=== PATIENT | female | born 1935 | race Caucasian/White ===

== ENCOUNTER 2021-11-27 16:36 | Emergency (ER) | payer MEDICARE, OTHER ==
[~2021-11-27] VITALS: Ht 162.6 cm; Wt 68.0 kg
[2021-11-27] MEDS ORDERED: COLESTID5 GM PO (16:41)
[2021-11-27] MEDS ORDERED: QUESTRAN PACKET4 GM PO (16:41)
[2021-11-27] MEDS ORDERED: PRINIVIL20 MG PO (16:42)
[2021-11-27] MEDS ORDERED: LANTUS SUBQ (16:42)
[2021-11-27] MEDS ORDERED: CRESTOR5 MG PO (16:42)
[2021-11-27] MEDS ORDERED: LEVO-T75 MCG PO (16:42)
[2021-11-27] MEDS ORDERED: NEURONTIN100 MG PO (16:43)
[2021-11-27] MEDS ORDERED: NORVASC10 MG PO (16:43)
[2021-11-27] MEDS ORDERED: ASPIRIN-DIPYRI1 EACH PO (16:43)
[2021-11-27] MEDS ORDERED: ONE-DAILY MULT1 EAC1 PO (16:43)
[2021-11-27] MEDS ORDERED: CALCIUM500 MG PO (16:43)
[2021-11-27] MEDS ORDERED: MELATONIN5 MG SUBLING (16:44)
[2021-11-27] MEDS ORDERED: FISH OIL 1,0001 EAC9 PO (16:44)
[2021-11-27 18:40] LABS: URINE BLOOD NEGATIVE (Negative); URINE CLARITY CLEAR; URINE COLOR YELLOW; URINE GLUCOSE-RANDOM NEGATIVE (Negative); URINE KETONES NEGATIVE (Negative); URINE LEUKOCYTES-REFLEX NEGATIVE (Negative); URINE NITRITE-REFLEX NEGATIVE (Negative); URINE PROTEIN TRACE (Negative); URINE SPECIFIC GRAVITY >= 1.030 (1.005-1.030); URINE UROBILINOGEN 0.2 E.U./dl (0.2-1.0)
[2021-11-27 18:43] LABS: ICTOTEST (BILI CONFIRMATORY) Positive (Negative); URINE BILIRUBIN 3+ (Negative)
[2021-11-27 19:23] LABS: ABSOLUTE BASOPHILS 0.1 thou/uL (0.0-0.2); ABSOLUTE EOSINOPHILS 0.3 thou/uL (0.0-0.7); ABSOLUTE LYMPHOCYTES 1.4 thou/uL (0.8-5.3); ABSOLUTE MONOCYTES 0.6 thou/uL (0.0-1.2); ABSOLUTE NEUTROPHILS 6.9 thou/uL (1.6-8.1); BASOPHILS 0.6 %; EOSINOPHILS 3.5 %; HEMATOCRIT 43.9 % (37.0-47.0); HEMOGLOBIN 14.8 gm/dL (12.0-15.0); MCHC 33.8 g/dL (28.0-37.0); MCV 88.7 fL (80.0-100.0); MONOCYTES 6.2 %; MPV 8.8 fl. (7.2-11.1); NUCLEATED RBCS 0 /100WBC; PLATELET COUNT* 206 thou/uL (150-400); POLYS 74.7 %; RBC 4.94 mil/uL (4.20-5.00); RDW-CV 13.7 % (10.5-14.5); WBC 9.2 thou/uL (4.0-11.0)
[2021-11-27 19:35] LABS: CALCIUM 9.1 mg/dL (8.5-10.1); CREATININE 1.3 mg/dL (0.6-1.3); POTASSIUM 3.7 mmol/L (3.5-5.1)
[2021-11-27 19:40] LABS: ALBUMIN 3.8 g/dL (3.4-5.0); TOTAL BILIRUBIN 0.5 mg/dL (<0.1-1.0); TOTAL PROTEIN 7.5 g/dL (6.4-8.2)
[2021-11-27] MEDS ORDERED: TRANSDERM-SCOP1 EACH TRANSDERM (20:52)
[2021-11-27 21:18] VITALS: BP 112/68
--- NOTE | 2021-11-28 10:54 | EKG ---
[place] [address] ELECTROCARDIOGRAM REPORT Name: JAYA SLOAN Room: [facility]#: [id number] Admission: 11/27/21 Attend Phys: Discharge: 11/27/21 Date of : 39 Date of Service: 11/27/21 1830 Report #: [id number] THIS REPORT FOR: //name// [facility] ED Test Date: 2021-11-27 Test Time: 18:30:57 Pat Name: JAYA SLOAN Department: Room: Gender: [employer]: : 1935 Requested By: Berna Cook Order Number: [id number] : Leonard Trujillo Measurements Intervals [place] Rate: 82 P: 0 ND: 216 QRS: -13 QRSD: 147 T: 141 QT: 436 QTc: 510 Interpretive Statements Sinus rhythm First-degree AV block Left bundle branch block No previous ECG available for comparison Electronically Signed On 11-28-2021 10:54:43 [employer] by Leonard Trujillo [email or web address] <ELECTRONICALLY SIGNED> By: Leonard Trujillo MD, LOCATED WITHIN [facility] 11/28/21 1054 29 29 Leonard Trujillo MD, FACC /EPI
== END 2021-11-27 21:18 | disposition home or self-care (01) ==
LOC: EDSEX 16:36 → M.ERS 16:36
PROVIDERS: Nurse Practitioner Family
DX: H81.10 Benign paroxysmal vertigo, unspecified ear (principal); E11.9 Type 2 diabetes mellitus without complications; E78.5 Hyperlipidemia, unspecified; Z90.49 Acquired absence of other specified parts of digestive tract; Z79.899 Other long term (current) drug therapy; Z88.5 Allergy status to narcotic agent